=== PATIENT | female | born 1970 | race Caucasian/White ===

== ENCOUNTER 2019-10-13 20:40 | Emergency (ER) | payer OTHER ==
[~2019-10-13] VITALS: Ht 157.5 cm; Wt 64.5 kg
[2019-10-13 20:40] VITALS: BP 128/100
--- NOTE | 2019-10-13 21:22 | PHYS DOC ---
General Adult EDM: Chief Complaint: SHOUDLER HPI: HPI: 49-year-old female presents with left shoulder pain. She was at work pulling on some heavy laundry when she had pain in her superior lateral shoulder. It is now painful to Abduct her arm above about 20 degrees. She can physically lifted, it is just painful. Flexion does not hurt. She denies any other injuries or complaints at this time. Review of Systems: Review of Systems: Constitutional: Denies fever or chills Eyes: Denies change in visual acuity HENT: Denies nasal congestion or sore throat Respiratory: Denies cough or shortness of breath Cardiovascular: Denies chest pain or edema GI: Denies abdominal pain, nausea, vomiting, bloody stools or diarrhea : Denies dysuria Musculoskeletal: Left shoulder pain Integument: Denies rash Neurologic: Denies headache, focal weakness or sensory changes Endocrine: Denies polyuria or polydipsia Lymphatic: Denies swollen glands Psychiatric: Denies depression or anxiety Heart Score: Risk Factors: Risk Factors: DM, Current or recent (<one month) smoker, HTN, HLP, family history of CAD, obesity. Risk Scores: Score 0 - 3: 2.5% MACE over next 6 weeks - Discharge Home Score 4 - 6: 20.3% MACE over next 6 weeks - Admit for Clinical Observation Score 7 - 10: 72.7% MACE over next 6 weeks - Early Invasive Strategies Physical Exam: PE: Constitutional: Well developed, well nourished, no acute distress, non-toxic appearance. [] HENT: Normocephalic, atraumatic, bilateral external ears normal, oropharynx moist, no oral exudates, nose normal. [] Eyes: PERRLA, EOMI, conjunctiva normal, no discharge. [] Neck: Normal range of motion, no tenderness, supple, no stridor. [] Cardiovascular:Heart rate regular rhythm, no murmur [] Lungs & Thorax: Bilateral breath sounds clear to auscultation [] Abdomen: Bowel sounds normal, soft, no tenderness, no masses, no pulsatile masses. [] Skin: Warm, dry, no erythema, no rash. [] Back: No tenderness, no CVA tenderness. [] Extremities: Tenderness over the supraspinatus muscle and around the upper deltoid. Limited abduction due to pain. [] Neurologic: Alert and oriented X 3, normal motor function, normal sensory function, no focal deficits noted. [] Psychologic: Affect normal, judgement normal, mood normal. [] EKG: EKG: [] Radiology/Procedures: Radiology/Procedures: [] Course & Med Decision Making: Course & Med Decision Making Pertinent Labs and Imaging studies reviewed. (See chart for details) I believe the patient strained her shoulder. She has full motion. Given the mechanism, I do not believe she tore anything, but I cannot be certain of this. We will do conservative care for now. I will give her 500 mg naproxen in the emergency room and have advised to rest and continue NSAID therapy. If this does not improve in a few days she will consider physical therapy. She is stable for discharge at this time. [] Paige Disclaimer: Paige Disclaimer: This electronic medical record was generated, in whole or in part, using a voice recognition dictation system. Departure Departure: Impression: Primary Impression: Left shoulder strain Qualified Codes: S46.912A - Strain of unspecified muscle, fascia and tendon at shoulder and upper arm level, left arm, initial encounter Disposition: HOME/RESIDENCE PRIOR TO ADM Condition: STABLE Patient Instructions: Shoulder Exercises, Generic, SportsMed, Shoulder Pain, [id number] Justification of Admission: Justification of Admission: Justification of Admission Dx: N/A RONEL RUSH DO Oct 13, 2019 21:22
[2019-10-13] MEDS ORDERED: NAPROXEN 500 MG TABLET PO ONE (21:30)
== END 2019-10-13 21:27 | disposition home or self-care (01) ==
LOC: ER 20:40
DX: S46.912A Strain of unspecified muscle, fascia and tendon at shoulder and upper arm level, left arm, initial encounter (principal); X50.9XXA Other and unspecified overexertion or strenuous movements or postures, initial encounter; Y93.89 Activity, other specified; Y92.89 Other specified places as the place of occurrence of the external cause; Y99.8 Other external cause status
CPT/HCPCS: 99282